=== PATIENT | male | born 1940 | race Caucasian/White ===

== ENCOUNTER 2017-02-11 17:52 | Outpatient (CLI) | payer BC | END 2017-02-11 17:53 | disposition critical access hospital (66) | LOC: EMS 17:52 | PROVIDERS: ATTEND Surgery | DX: I46.9 Cardiac arrest, cause unspecified (principal) | CPT/HCPCS: A0425; A0433 ==

== ENCOUNTER 2017-02-11 18:20 | Emergency (ER) | payer BC, MEDICARE ==
[2017-02-11] MEDS ORDERED: SODIUM BICARBONATE ABBOJECT 50 MEQ/50 ML SYRINGE IVP STA (18:45)
[2017-02-11] MEDS ORDERED: EPINEPHrine ABBOJECT 1 MG/10 ML SYRINGE IVP STA (18:45)
[2017-02-11] MEDS ORDERED: DOPamine 800 MG/500 ML 500 ML IV STA (18:45)
--- NOTE | 2017-02-11 18:46 | ED Physician Documentation ---
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 She had seen him briefly before and then saw him unresponsive at edge of walkway. Down time would have been under 2-3 minutes. She initiated CPR, and EMS found the patient in V-fib. Shocked twice and did get some rhythm back, with pulses faintly. Matthew tube placed for airway, but he had vomitus despite that enroute and so tube pulled and BVM ensued by EMS. 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, Oxygen, BVM, Intubated (Matthew Tube enroute), Epi, Amiodarone, Sodium Bicarb Advanced directive: No advanced directive Review of Systems Unable to obtain: Unresponsive, Intubated PD PAST MEDICAL HISTORY - Past Medical History Cardiovascular: Hypertension, Murmur Respiratory: CPAP use Neuro: Peripheral neuropathy Endocrine/Autoimmune: None GI: GERD : Benign prostate hypertrophy HEENT: Chronic hearing loss Psych: Claustrophobia Musculoskeletal: Osteoarthritis Derm: None - Past Surgical History General: Colonoscopy, EGD Ortho: Rotator cuff repair Cardiovascular:  HEENT: Cataracts, Tonsil/Adenoidectomy - Present Medications Home Medications: Ambulatory Orders Medication Instructions Recorded Confirmed Amlodipine Besylate 5 mg PO DAILY 08/04/14 09/28/15 Aspirin [Aspir 81] 81 mg PO DAILY 08/04/14 10/10/15 Atorvastatin Calcium 20 mg PO DAILY 08/04/14 09/28/15 Furosemide 80 mg PO BID 08/04/14 09/28/15 Gabapentin 300 mg PO 5XD 08/04/14 09/28/15 Omeprazole 10 mg PO DAILY 08/04/14 10/10/15 Potassium Chloride 10 meq PO BID 08/04/14 10/10/15 Timolol 0.5% Ophth Drops [Timoptic 1 drop EACHEYE QPM 08/04/14 09/28/15 0.5% Ophth Drops] Valsartan [Diovan] 160 mg PO DAILY 08/04/14 09/28/15 Multivitamin [Multivitamins] 1 each PO DAILY 06/20/15 09/28/15 - Allergies Allergies/Adverse Reactions: Allergies Allergy/AdvReac Type Severity Reaction Status Date / Time No Known Drug Allergies Allergy Verified 06/20/15 12:19 - Living Situation Living Situation: reports: With spouse/s.o. Living Arrangement: reports: At home - Family History Family history: reports: Unknown - POLST POLST Status: Full Code PD ED PE NORMAL - Vitals Vital signs reviewed: Yes - General General: Well developed/nourished, Other (Arrives with BVM occurring. Weak pulse present. Congested lung sounds with bagging. No spontaneous efforts. No spontaneous movements. ) - HEENT HEENT: PERRL (midpoint to slightly dilated with sluggishly reactive pupils. ), Pharynx benign (no apparent injury; some vomitus in oropharynx. ), Other ( laceration mid forehead with swelling; minimal bleeding. ) - Neck Neck: Other (JVD noted with patient supine. He is kept on backboard with blanket color taped in place (neck large and EMS did not have collar to fit). ) - Cardiac Cardiac: RRR (initially heart rate about 70, with faint pulses. Heart rate slowed shortly after arrival and during intubation, but responded to epi. ) - Respiratory Respiratory: No: Clear bilaterally (coarse both sides with bagged ventilations. ) - Abdomen Abdomen: Other (distended abdomen with decreased bowel sounds. ) - Male Male : Deferred - Rectal Rectal: Deferred - Derm Derm: No: Normal color (pallor diffusely. ) - Extremities Extremities: Other (IO infusing left tibial area. Cool skin and mottled color in extremities. ) - Neuro Neuro: No: Alert and oriented X 3 Results - Vitals Vitals: Vital Signs - 24 hr 02/11/17 02/11/17 02/11/17 18:20 19:02 19:11 Heart Rate 29 L 106 H 93 Respiratory Rate Blood Pressure 105/63 109/63 O2 Saturation 72 L 88 L 02/11/17 02/11/17 02/11/17 19:16 19:21 19:51 Heart Rate 106 H 97 111 H Respiratory 12 16 Rate Blood Pressure 102/63 104/58 L 104/61 O2 Saturation 94 99 100 02/11/17 02/11/17 02/11/17 19:59 20:13 20:21 Heart Rate 111 H 111 H 117 H Respiratory 16 16 16 Rate Blood Pressure 102/59 L 140/80 H 140/58 H O2 Saturation 100 97 96 Oxygen O2 Source [With Activity] Room air O2 Source [Without Activity] Room air O2 Source bagged thru ET tube - EKG (time done) 1847 Rate: Rate (enter#) (93) Rhythm: NSR [place]: LAD Intervals: Wide QRS Ischemia: ST depression, Non specific changes Compare to prior EKG: Old EKG unavailable - Labs Labs: Laboratory Tests 02/11/17 02/11/17 02/11/17 18:43 18:43 18:43 WBC 15.6 H RBC 4.01 L Hgb 13.5 L Hct 40.7 L MCV 101.5 H MCH 33.8 H MCHC 33.3 RDW 13.9 Plt Count 122 L MPV 9.1 Neut # 10.1 H Lymph # 4.7 H [place] # 0.5 Eos # 0.3 Baso # 0.1 Absolute Nucleated RBC 0.03 Nucleated RBCs 0.2 Bld Gas Analysis Time Sample Site ABG pH ABG pCO2 ABG pO2 ABG HCO3 ABG Total CO2 ABG O2 Saturation ABG Oximetry Spot Check ABG Base Excess Marlon Test Respiration Rate O2 Delivery Device Vent Mode FiO2 Tidal Volume PEEP Pressure Support Vent Sodium 145 Potassium 3.5 Chloride 105 Carbon Dioxide 23 Anion Gap 17.0 H BUN 16 Creatinine 1.6 H Estimated GFR (MDRD) 42 L Glucose 264 H Calcium 8.3 L Magnesium 2.5 Total Bilirubin 0.4 AST 65 H ALT < 10 L Alkaline Phosphatase 74 Troponin I 0.74 H* Total Protein 6.1 L Albumin 3.4 Globulin 2.7 Albumin/Globulin Ratio 1.3 Lipase 56 H 02/11/17 19:15 WBC RBC Hgb Hct MCV MCH MCHC RDW Plt Count MPV Neut # Lymph # [place] # Eos # Baso # Absolute Nucleated RBC Nucleated RBCs Bld Gas Analysis Time 193 Sample Site RIGHT BRACHIAL ABG pH 7.14 L* ABG pCO2 55 H ABG pO2 101 H ABG HCO3 18.1 L ABG Total CO2 19.8 L ABG O2 Saturation 97 ABG Oximetry Spot Check 98 ABG Base Excess -11.4 L Marlon Test UNKNOWN Respiration Rate 12 O2 Delivery Device VENTILATOR Vent Mode SIMV FiO2 100.00 Tidal Volume 600 PEEP 5 Pressure Support Vent 10 Sodium Potassium Chloride Carbon Dioxide Anion Gap BUN Creatinine Estimated GFR (MDRD) Glucose Calcium Magnesium Total Bilirubin AST ALT Alkaline Phosphatase Troponin I Total Protein Albumin Globulin Albumin/Globulin Ratio Lipase - Rads (name of study) chest xray Radiology: Prelim report reviewed, EMP read contemporaneously (ETT in good position. lungs appear congested c/w CHF vs. aspiration) head CT Radiology: Prelim report reviewed (no acute ICH nor signs of significant edema) cervical CT Radiology: Prelim report reviewed, Discussed with rads, EMP read contemporaneously (C6 fracture posterior lamina bilaterally with some diastasis. ) Procedures - Intubation Provider: Emergency physician Medications: Other (no medications needed) Blade: Glidescope (head maintained in neutral position) Tube: Size-enter number (7.5), Cuffed, Marked at lips-enter cm (25) Route: Oral Confirmation: Direct visualization, Bilateral breath sounds, No abdominal breath sound, End tidal CO2, Pulse ox, Chest xray Complications: No compications PD MEDICAL DECISION MAKING - ED course Complexity details: reviewed results, re-evaluated patient (he had marked bradycardia to 20s during intubation and CPR resumed. Intubation successful and sats improved from 70s on arrival. Epi and Bicard given with improved heart rate. Dopamine started for pressure support and BP improved. Rhythm remains stable and we are able to place OGT, [place], and get CT head and neck. I am concerned for cardiogenic cause of arrest and subsequent trauma. Contacted [facility] for transfer, who accepted. ), considered differential (Given primary rhythm being v-fib and was shockable, I presume primary cardiac problem leading to syncope/fall, and subsequent trauma. ), d/w family (, who affirmed patient is full code and who understood the severity of the problem. ) , d/w safety consultant (Accepting ER doctor at [facility]) - Critical Care Time(min): 50 Time Includes: Direct patient care, Reassess patient, Document care, Coordinate care Data interpretation: Labs, Pulse ox, ABG, CXR Procedures included in critical care time: Ventilator mgmt Procedures excluded from critical care time: Intubation, EKG Departure - Departure Disposition: 02 Transfer Acute Care Hosp Clinical Impression: Ventricular fibrillation, Cervical spine fracture Postoperative cardiac arrest Qualifiers: Procedure type: cardiac Qualified Code(s): I97.120 - Postprocedural cardiac arrest following cardiac surgery Facial laceration Qualifiers: Encounter type: initial encounter Qualified Code(s): S01.81XA - Laceration without foreign body of other part of head, initial encounter Condition: Critical Record reviewed to determine appropriate education?: Yes Discharge Date/Time: 02/11/17 20:20
[2017-02-11 18:56] LABS: BASOPHILS # (AUTO) 0.1 10^3/uL (0.0-0.1); BASOPHILS % (AUTO) 0.9 %; EOSINOPHILS # (AUTO) 0.3 10^3/uL (0.0-0.7); EOSINOPHILS % (AUTO) 1.8 %; HCT - HEMATOCRIT 40.7 % (42.0-52.0); HGB - HEMOGLOBIN 13.5 g/dL (14.0-18.0); LYMPHOCYTES # (AUTO) 4.7 10^3/uL (1.5-3.5); LYMPHOCYTES % (AUTO) 29.9 %; MEAN CORPUSCULAR HEMOGLOBIN 33.8 pg (27.0-31.0); MEAN CORPUSCULAR HGB CONC 33.3 g/dL (32.0-36.0); MEAN CORPUSCULAR VOLUME 101.5 fL (80.0-94.0); MEAN PLATELET VOLUME 9.1 fL (7.4-11.4); MONOCYTES # (AUTO) 0.5 10^3/uL (0.0-1.0); MONOCYTES % (AUTO) 2.9 %; NEUTROPHILS # (AUTO) 10.1 10^3/uL (1.5-6.6); NEUTROPHILS % (AUTO) 64.5 %; NUCLEATED RED BLOOD CELLS AUTO 0.2 /100WBC; RED BLOOD COUNT 4.01 10^6/uL (4.70-6.10); RED CELL DISTRIBUTION WIDTH 13.9 % (12.0-15.0); UNCORRECTED WHITE BLOOD COUNT 15.6 x10^3/uL; WHITE BLOOD COUNT 15.6 x10^3/uL (4.8-10.8)
[2017-02-11 19:13] LABS: ALBUMIN/GLOBULIN RATIO 1.3 (1.0-2.2); BILIRUBIN,TOTAL 0.4 mg/dL (0.2-1.0); BUN - BLOOD UREA NITROGEN 16 mg/dL (6-20); CALCIUM 8.3 mg/dL (8.5-10.3); CARBON DIOXIDE - CO2 23 mmol/L (21-32); CHLORIDE 105 mmol/L (101-111); CREATININE 1.6 mg/dL (0.6-1.2); GFR - MDRD 42 (>89); GLUCOSE 264 mg/dL (70-100); LIPASE 56 U/L (22-51); MAGNESIUM 2.5 mg/dL (1.7-2.8); POTASSIUM 3.5 mmol/L (3.5-5.0); SODIUM 145 mmol/L (135-145); TOTAL PROTEIN 6.1 g/dL (6.7-8.2)
--- NOTE | 2017-02-11 19:16 | XRAY Preliminary Report ---
Exam: XR Chest 1 View IMPRESSION: 1. Mild cardiac enlargement. 2. Diffuse interstitial nodular opacities about both lungs. Findings are nonspecific and could repres ent edema or infiltrates. Correlate clinically. Suspect edema. [facility] SITE ID: [id number]
[2017-02-11 20:00] LABS: ABG ANALYSIS TIME 1933
[2017-02-11 20:01] LABS: ABG BASE EXCESS -11.4 mmol/L (-2.0-3.0); ABG HCO3 18.1 mmol/L (22.0-26.0); ABG OXYGEN SATURATION 97 % (94-98); ABG PCO2 55 mmHg (34-45); ABG PO2 101 mmHg (80-100); ABG TCO2 19.8 MMOL/L (21.0-29.0)
[2017-02-11 20:02] LABS: ABG SATURATION PULSE OXIMETRY% 98 %; ABG SITE OF DRAW RIGHT BRACHIAL
[2017-02-11 20:05] LABS: ABG MODE OF VENTILATION SIMV; ABG O2 DEVICE VENTILATOR
[2017-02-11 20:06] LABS: ABG PEAK END EXPIRATORY PRESSU 5 cmH2O; ABG PRESSURE SUPPORT VENT 10 cmH2O; ABG RESPIRATORY RATE 12 b/min
[2017-02-11 20:08] LABS: ABG PH 7.14 (7.35-7.45)
[2017-02-11 20:24] VITALS: BP 140/58
--- NOTE | 2017-02-11 20:28 | CT Preliminary Report ---
Exam: CT Head W/O IMPRESSION: 1. Recommend removal and repositioning of the NG tube. 2. No intracranial abnormality nor bleed. 3. Recommend direct inspection of the left tympanic membrane to differentiate between bland reactive fluid following intubation versus hemotympanum. [facility] SITE ID: [id number]
--- NOTE | 2017-02-11 20:40 | CT Preliminary Report ---
Exam: CT Cervical Spine W/O IMPRESSION: 1. Acute diastatic fracture through the anterior middle and posterior bony columns at the C6-C7 level involving the C6 lamina. 2. Ankylosing spondylitis. 3. Acute on chronic lung disease. 4. Recommend removal and replacement of the NG tube. [facility] The above critical findings were discussed with Dr. Stern by Dr. Sushma Barrientos at 20:39 hrs on 02/11/17. SITE ID: [id number]
--- NOTE | 2017-02-11 20:50 | CT Report ---
EXAM: CT HEAD EXAM DATE: 02/11/2017 07:50 PM. CLINICAL HISTORY: Fall, head injury. COMPARISON: No prior head CT. Chest x-ray earlier today at 1845. TECHNIQUE: Multiaxial CT images were obtained from the foramen magnum to the vertex. IV contrast: Non e. Reformats: Coronal. In accordance with CT protocol optimization, one or more of the following dose reduction techniques w ere utilized for this exam: automated exposure control, adjustment of mA and/or KV based on patient s ize, or use of iterative reconstructive technique. FINDINGS: Parenchyma: No intraparenchymal hemorrhage. No evidence of mass, midline shift, or CT findings of acu te infarction. [place]-white differentiation is distinct. Extraaxial Spaces: Normal for age. No subdural or epidural collections identified. Ventricles: The ventricles and cortical sulci are enlarged, consistent with age-related tissue loss. Sinuses: Small amount of fluid throughout the paranasal sinuses. Small amount of fluid in the left middle ear. Small amount of fluid in several inferior left mastoid air cells. Bones: No evidence of fracture or calvarial defect. Other: Diffuse chronic microangiopathic white matter changes are evident. NG tube is coiled within the naso- and oropharynx. It is not seen on the earlier chest x-ray. Moderate right frontal scalp edema. Intubated. IMPRESSION: 1. Recommend removal and repositioning of the NG tube. 2. No intracranial abnormality nor bleed. 3. Recommend direct inspection of the left tympanic membrane to differentiate between bland reactive fluid following intubation versus hemotympanum. [facility] Referring Provider Line: [phone] SITE ID: [id number]
--- NOTE | 2017-02-11 20:51 | CT Report ---
EXAM: CT CERVICAL SPINE WITHOUT CONTRAST DATE: 02/11/2017 07:51 PM HISTORY: Fall, post arrest. Intubated. COMPARISONS: None. TECHNIQUE: Thin-section axial images were acquired of the cervical spine without contrast. Post-proce ssing: Coronal and sagittal reformats. Other: None. In accordance with CT protocol optimization, one or more of the following dose reduction techniques w ere utilized for this exam: automated exposure control, adjustment of mA and/or KV based on patient s ize, or use of iterative reconstructive technique. FINDINGS: Alignment: Normal. No scoliosis or spondylolisthesis. Bones: Extensive ankylosing spondylitis from C2 inferiorly to at least T1. Acute fracture through the C6-C7 disk space with 9 mm diastases of the anterior aspect of the disk sp robert and minimal diastases of the posterior aspect of the disk space. No retropulsed bone fragments at this point. Mild diastases of both C6-C7 facets. Acute fractures of the posterior-most aspects both C6 lamina, 1 mm diastases on the right, 2 mm diast ases on the left. 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 The rest of the trabecular and cortical patterns are intact. Interspace Levels/Facets: Greatest degree of central spinal canal stenosis is moderate at the C6-C7 level due to an old large l eft-sided disk herniation. No epidural or paravertebral blood products at this level. Multilevel moderate to marked degenerative changes. Musculature: Normal. No fatty atrophy. Other: Chronic lung disease. Small right pleural effusion. Patchy infiltrates right upper lobe. IMPRESSION: 1. Acute diastatic fracture through the anterior middle and posterior bony columns at the C6-C7 level involving the C6 lamina. This is an unstable fracture. 2. Ankylosing spondylitis. 3. Acute on chronic lung disease. 4. Recommend removal and replacement of the NG tube. [facility] The above critical findings were discussed with Dr. Stern by Dr. Sushma Barrientos at 20:39 hrs on 02/11/17. Referring Provider Line: [phone] SITE ID: [id number]
--- NOTE | 2017-02-11 21:17 | XRAY Report ---
EXAM: CHEST RADIOGRAPHY EXAM DATE: 02/11/2017 06:46 PM. CLINICAL HISTORY: Intubated patient - CPR. COMPARISON: None. TECHNIQUE: 1 view. FINDINGS: Lungs/Pleura: Diffuse interstitial and alveolar opacities throughout both lungs. No large effusions o r pneumothorax. Left costophrenic angle is excluded from the [id number]. Mediastinum: Heart is enlarged. Other: ET tube terminates 5.7 cm above the [place]. The balloon is inflated at the thoracic inlet. EKG leads overlie the chest. Artifacts project over the chest apparently external to the body. IMPRESSION: 1. Mild cardiac enlargement. 2. Diffuse interstitial and alveolar opacities throughout both lungs. Findings are nonspecific and co uld represent edema or infiltrates. Correlate clinically. Suspect edema. [facility] Referring Provider Line: [phone] SITE ID: [id number]
== END 2017-02-11 20:20 | disposition short-term general hospital (02) ==
LOC: EDUNIT# → ED 18:20
DX: I49.01 Ventricular fibrillation (principal); I97.120 Postprocedural cardiac arrest following cardiac surgery; S12.500A Unspecified displaced fracture of sixth cervical vertebra, initial encounter for closed fracture; S12.600A Unspecified displaced fracture of seventh cervical vertebra, initial encounter for closed fracture; S01.81XA Laceration without foreign body of other part of head, initial encounter; W01.0XXA Fall on same level from slipping, tripping and stumbling without subsequent striking against object, initial encounter; I10 Essential (primary) hypertension; Z86.73 Personal history of transient ischemic attack (TIA), and cerebral infarction without residual deficits; K21.9 Gastro-esophageal reflux disease without esophagitis; N40.0 Benign prostatic hyperplasia without lower urinary tract symptoms; M19.90 Unspecified osteoarthritis, unspecified site
CPT/HCPCS: 36415; 36600; 51702; 70450; 71010; 72125; 80053; 82803; 83690; 83735; 84484; 85025; 92950; 93005; 93010; 99284; 99291